=== PATIENT | male | born 1995 | race Caucasian/White ===

== ENCOUNTER 2018-06-05 14:26 | Outpatient (CLI) | payer BC | END 2018-06-05 14:27 | disposition home or self-care (01) | LOC: ULT 14:26 | PROVIDERS: ATTEND Family Medicine | DX: R09.89 Other specified symptoms and signs involving the circulatory and respiratory systems (principal); I07.1 Rheumatic tricuspid insufficiency; I37.1 Nonrheumatic pulmonary valve insufficiency | CPT/HCPCS: 93306 ==